=== PATIENT | male | born 1955 | race Hispanic/Latino ===

== ENCOUNTER 2018-04-30 08:03 | Day surgery (SDC) | payer MEDICARE ==
[~2018-04-30] VITALS: Ht 167.6 cm; Wt 72.6 kg
[~2018-04-30 08:03] MED LIST: ATOR10TA69 PO; CIPR-278 PO; INSU10VI3 SQ; LISI10TA7 PO; PREG75 PO; SODIUM CHLORIDE 0.9% 1000ML 1,000 ML IV ONE
[2018-04-30 08:31] VITALS: BP 135/62
[2018-04-30] MEDS ORDERED: ALBUHFA IH (08:58)
[2018-04-30] MEDS ORDERED: LIDOCAINE HCL 1% 20 ML VIAL ONE (09:50)
[2018-04-30] MEDS ORDERED: PROPOFOL 1000 MG/100 ML 100 ML IV ONE (09:50)
[2018-04-30 10:11] VITALS: BP 91/49
== END 2018-04-30 11:25 | disposition home or self-care (01) ==
LOC: DAH 08:03 → ENDO 08:03
PROVIDERS: ATTEND Internal Medicine
DX: K29.50 Unspecified chronic gastritis without bleeding (principal); B96.81 Helicobacter pylori [H. pylori] as the cause of diseases classified elsewhere; I10 Essential (primary) hypertension; F41.9 Anxiety disorder, unspecified; F32.9 Major depressive disorder, single episode, unspecified; J45.909 Unspecified asthma, uncomplicated; E11.9 Type 2 diabetes mellitus without complications; M81.0 Age-related osteoporosis without current pathological fracture; M19.90 Unspecified osteoarthritis, unspecified site; Z79.4 Long term (current) use of insulin; Z79.899 Other long term (current) drug therapy; Z90.49 Acquired absence of other specified parts of digestive tract; Z98.49 Cataract extraction status, unspecified eye; Z85.828 Personal history of other malignant neoplasm of skin; K86.1 Other chronic pancreatitis
CPT/HCPCS: 43237; 43239; 82948 ×2; A4606; J2704; J7030; 43231